=== PATIENT | female | born 1955 | race Caucasian/White ===

== ENCOUNTER 2018-09-19 15:10 | Emergency (ER) | payer OTHER ==
[2018-09-19 15:18] VITALS: BP 139/73; PULSE 82; TEMP 98.5; BMI 33.7
--- NOTE | 2018-09-19 15:25 | PDOC ---
History of Present Illness - General History Source: Patient Exam Limitations: No Limitations - History of Present Illness Initial Comments: 09/19/18 15:57 63 yo F with no past medical history (has not seen a physician in "a long time" ) presents to the emergency department with red and itchy eyes with concurrent non productive cough and sore throat for 2 weeks. Per the patient, she denies hx of seasonal allergies and never had this beforehand. Denies recent foreign body striking her eyes. 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 Denies visual changes. Used eye drops for 2 weeks once a day and denies using a systemic antihistamine medication. Denies the following: fever, chills, SOB, chest pain, nausea, vomiting, ear ache, nasal congestion, abdominal pain, dysuria, hematuria, and leg pain/swelling. <Butch English - Last Filed: 09/19/18 17:54> <Roberto Miranda - Last Filed: 09/19/18 18:45> - General Chief Complaint: Eye Problem Stated Complaint: IRRITATION BOTH EYES FOR 2 WEEKS Attending Attestation - Resident Resident Name: Butch English - ED Attending Attestation I have performed the following: I have examined & evaluated the patient, The case was reviewed & discussed with the resident, I agree w/resident's findings & plan, Exceptions are as noted - HPI HPI: Redness and irritation of both eyes. Works in a kitchen, exposed to fumes 09/19/18 16:19 - Physicial Exam PE: Alert, oriented x 3, ambulatory Hyperemic conjunctivae, moderately swollen eyelids Congested pharynx Lungs clear Skin otherwise nomal 09/19/18 16:21 - Medical Decision Making Evaluated and treated for allergic / chemical conjunctivitis 09/19/18 16:24 <Roberto Miranda - Last Filed: 09/19/18 18:45> Past History - Past Medical History COPD: No - Suicide/Smoking/Psychosocial Hx Smoking History: Never smoked Information on smoking cessation initiated: No Hx Alcohol Use: Yes (OCCASSIONAL) Drug/Substance Use Hx: No <Butch English - Last Filed: 09/19/18 17:54> <Roberto Miranda - Last Filed: 09/19/18 18:45> - Past Medical History Allergies/Adverse Reactions: Allergies Allergy/AdvReac Type Severity Reaction Status Date / Time No Known Allergies Allergy Unverified 09/19/18 15:11 Home Medications: Ambulatory Orders Ketotifen Fumarate 5 ml OP BID #1 drops 09/19/18 Loratadine 10 mg PO DAILY #30 tablet 09/19/18 Review of Systems - Review of Systems Able to Perform ROS?: Yes Is the patient limited Serbian proficient: No Constitutional: No: Chills, Diaphoresis, Fever HEENTM: Yes: Tearing, Nose Congestion, Throat Pain. No: Eye Pain, Recent change in vision, Ear Pain, Nose Bleeding, Throat Swelling, Mouth Pain, Difficulty Swallowing Respiratory: No: Cough, Shortness of Breath, Hemoptysis Cardiac (ROS): No: Chest Pain, Irregular Heart Rate, Lightheadedness, Palpitations, Syncope ABD/GI: No: Constipated, Difficulty Swallowing, Nausea, Poor Fluid Intake, Rectal Bleeding, Vomiting, Abdominal cramping, Tarry Stools : No: Burning, Dysuria, Hematuria, Incontinence Musculoskeletal: No: Back Pain, Joint Pain, Neck Pain Integumentary: No: Bruising, Erythema, Rash Neurological: No: Headache, Numbness, Tingling, Tremors Psychiatric: Yes: Stressors Endocrine: No: Unexplained Weight Gain Hematologic/Lymphatic: No: Anemia <Fowler,Butch - Last Filed: 09/19/18 17:54> *Physical Exam - Vital Signs Last Vital Signs Temp Pulse Resp BP Pulse Ox 98.5 F 82 18 139/73 97 09/19/18 15:11 09/19/18 15:11 09/19/18 15:11 09/19/18 15:11 09/19/18 15:11 - Physical Exam General Appearance: Yes: Nourished, Appropriately Dressed. No: Apparent Distress, Intoxicated HEENT: positive: EOMI, ROLY, Normal Voice, Symmetrical, Pharynx Normal, Nasal Congestion, Hearing Grossly Normal, Other (conjunctivitis bilaterally R>L). negative: TMs Normal (erythema in ear canals bilaterally), Pale Conjunctivae, Scleral Icterus (R), Scleral Icterus (L), Muffled/Hoarse voice, Pharyngeal Erythema, Tonsillar Exudate, Tonsillar Erythema, Rhinorrhea, Sinus Tenderness, Excessive drooling Neck: positive: Trachea midline, Supple. negative: Tender, Lymphadenopathy (R) , Lymphadenopathy (L), Tender lateral, Tender midline Respiratory/Chest: positive: Lungs Clear, Normal Breath Sounds. negative: Chest Tender, Respiratory Distress, Accessory Muscle Use, Rales, Rhonchi, Stridor, Wheezing Cardiovascular: positive: Regular Rhythm, Regular Rate, S1, S2. negative: Systolic Murmur <Butch English - Last Filed: 09/19/18 17:54> - Vital Signs Last Vital Signs Temp Pulse Resp BP Pulse Ox 98.5 F 82 18 139/73 97 09/19/18 15:11 09/19/18 15:11 09/19/18 15:11 09/19/18 15:11 09/19/18 15:11 <Roberto Miranda S - Last Filed: 09/19/18 18:45> ED Treatment Course - Medications Given in the ED: ED Medications Discontinued Medications Generic Name Dose Route Start Last Admin Trade Name Freq PRN Reason Stop Dose Admin Loratadine 10 mg 09/19/18 15:46 09/19/18 15:50 Claritin - PO 09/19/18 15:47 10 mg ONCE ONE Administration <Roberto Miranda S - Last Filed: 09/19/18 18:45> Medical Decision Making - Medical Decision Making 09/19/18 18:01 63 yo F with no past medical history (has not seen a physician in "a long time" ) presents to the emergency department with red and itchy eyes with concurrent non productive cough and sore throat for 2 weeks. Initial vitals: Initial Vital Signs Temp Pulse Resp BP Pulse Ox 98.5 F 82 18 139/73 97 09/19/18 15:11 09/19/18 15:11 09/19/18 15:11 09/19/18 15:11 09/19/18 15:11 Work up:" patient presents with ssx likely consistent with allergic rhinitis/ conjunctivitis. she was given loratadine and a prescription for eye drops and agreed to follow up with PMD in 2 weeks for follow up care and management. <Butch English - Last Filed: 09/19/18 17:54> *DC/Admit/Observation/Transfer - Discharge Dispostion Decision to Admit order: No <Butch English - Last Filed: 09/19/18 17:54> <Roberto Miranda - Last Filed: 09/19/18 18:45> Diagnosis at time of Disposition: Allergic conjunctivitis Qualifiers: Laterality: bilateral Qualified Code(s): H10.13 - Acute atopic conjunctivitis, bilateral - Discharge Dispostion Disposition: HOME Condition at time of disposition: Stable - Prescriptions Prescriptions: Ketotifen Fumarate 5 ml OP BID #1 drops Loratadine 10 mg PO DAILY #30 tablet - Referrals Referrals: Marcelo Patel MD [Primary Care Provider] - - Patient Instructions Printed Discharge Instructions: DI for Conjunctivitis Additional Instructions: Please take the eye drops as prescribed. place 1 drop per eye every 12 hours for 2 weeks. please keep your appointment with your primary medical doctor Sep 28 2018. Please return to the emergency department if you have worsening symptoms or new concerning symptoms such as decreased vision, headaches, increased pain, and shortness of breath. thank you. - Post Discharge Activity Forms/Work/School Notes: Back to Work
[2018-09-19] MEDS ORDERED: LORATADINE 10 MG TABLET PO ONE (15:46)
[2018-09-19] MEDS ORDERED: LORATADINE 10 MG TABLET ONE (15:49)
== END 2018-09-19 16:28 | disposition home or self-care (01) ==
LOC: FER 15:10
DX: H10.13 Acute atopic conjunctivitis, bilateral (principal); Z77.29 Contact with and (suspected) exposure to other hazardous substances; X58.XXXA Exposure to other specified factors, initial encounter; Y93.89 Activity, other specified; Y92.511 Restaurant or cafe as the place of occurrence of the external cause; Y99.0 Civilian activity done for income or pay
CPT/HCPCS: 99281-25